=== PATIENT | female | born 1995 | race African-American/Black ===

== ENCOUNTER 2019-01-17 22:01 | Emergency (ER) | payer MEDICAID ==
[~2019-01-17] VITALS: Ht 167.6 cm; Wt 65.8 kg
[2019-01-17 22:08] VITALS: BP 143/78
--- NOTE | 2019-01-17 22:53 | NUR ---
PT STATED THAT SHE WAS HOMELESS. PT REC'D A WARM CARDIGAN, FOOD AND JUICE. PT REFUSED SENIOR LIVING, BUT REC'D A HOMELESS PACKET WITH SENIOR LIVING INFORMATION. PT ALSO REFUSED A TAP CARD. PT STATED THAT SHE HAD MEANS TO GET HOME.
== END 2019-01-17 22:59 | disposition home or self-care (01) ==
LOC: ER 22:01
DX: S80.861A Insect bite (nonvenomous), right lower leg, initial encounter (principal); Z90.89 Acquired absence of other organs; W57.XXXA Bitten or stung by nonvenomous insect and other nonvenomous arthropods, initial encounter; Y93.89 Activity, other specified; Y92.89 Other specified places as the place of occurrence of the external cause; Y99.8 Other external cause status

== ENCOUNTER 2019-01-23 22:29 | Emergency (ER) | payer MEDICAID ==
[~2019-01-23] VITALS: Ht 167.6 cm; Wt 65.8 kg
[2019-01-23 22:36] VITALS: BP 125/65
== END 2019-01-23 23:23 | disposition home or self-care (01) ==
LOC: ER 22:32
DX: B35.3 Tinea pedis (principal); Z90.89 Acquired absence of other organs; Z59.0 Homelessness

== ENCOUNTER 2019-07-24 22:01 | Emergency (ER) | payer MEDICAID ==
[~2019-07-24] VITALS: Ht 167.6 cm; Wt 82.6 kg
[2019-07-24 23:14] VITALS: BP 144/88
--- NOTE | 2019-07-24 23:48 | NUR ---
Patient given written and verbal discharge instructions. Patient verbalizes understanding of instructions. Patient is ambulatory with steady gait. Refuses offer of assisted placement. Patient given list of available shelters in surrounding area.
== END 2019-07-24 23:51 | disposition home or self-care (01) ==
LOC: ER 22:01
DX: M54.2 Cervicalgia (principal); M62.838 Other muscle spasm; Z90.89 Acquired absence of other organs; Z59.0 Homelessness

== ENCOUNTER 2019-09-22 18:53 | Emergency (ER) | payer BC, MEDICAID ==
[~2019-09-22] VITALS: Ht 167.6 cm; Wt 82.6 kg
--- NOTE | 2019-09-22 21:00 | NUR ---
CALLED PT IN [place], NO ANSWER.
[2019-09-22 21:05] VITALS: BP 143/99
--- NOTE | 2019-09-22 21:16 | NUR ---
CALLED PT IN [place], NO ANSWER
--- NOTE | 2019-09-22 21:34 | NUR ---
CALLED PT IN [place], NO ANSWER.
[2019-09-23] MEDS ORDERED: IBUPROFEN 600 MG TABLET PO ONE ×2 (02:43→03:00)
== END 2019-09-23 04:35 | disposition home or self-care (01) ==
LOC: ER 18:58
DX: B34.9 Viral infection, unspecified (principal); F17.200 Nicotine dependence, unspecified, uncomplicated; Z90.89 Acquired absence of other organs; Z59.0 Homelessness

== ENCOUNTER 2019-09-26 21:39 | Emergency (ER) | payer BC, MEDICAID ==
[~2019-09-26] VITALS: Ht 167.6 cm; Wt 82.6 kg
[2019-09-26 23:13] VITALS: BP 132/87
[2019-09-26] MEDS ORDERED: IBUPROFEN 400 MG TABLET ONE (23:26)
[2019-09-26] MEDS ORDERED: IBUPROFEN 400 MG TABLET PO ONE (23:30)
== END 2019-09-26 23:35 | disposition home or self-care (01) ==
LOC: ER 21:41
DX: B34.9 Viral infection, unspecified (principal); F10.10 Alcohol abuse, uncomplicated; F17.200 Nicotine dependence, unspecified, uncomplicated; Y90.9 Presence of alcohol in blood, level not specified; Z90.89 Acquired absence of other organs; Z59.0 Homelessness

== ENCOUNTER 2019-09-27 21:35 | Emergency (ER) | payer BC ==
[~2019-09-27] VITALS: Ht 167.6 cm; Wt 83.0 kg
--- NOTE | 2019-09-27 21:48 | NUR ---
CALLED TO TRIAGE NO ANSWER
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
--- NOTE | 2019-09-27 22:27 | NUR ---
AWAITING FOR MD WIGGINS
--- NOTE | 2019-09-27 22:46 | NUR ---
Patient discharged to home in stable condition. Written and verbal after care instructions given. Patient verbalizes understanding of instruction. PT ambulatory with a steady gait. PT signed homeless waiver.
[2019-09-27 22:47] VITALS: BP 128/78
== END 2019-09-27 22:47 | disposition home or self-care (01) ==
LOC: ER 21:35
DX: N89.8 Other specified noninflammatory disorders of vagina (principal); F10.10 Alcohol abuse, uncomplicated; F17.200 Nicotine dependence, unspecified, uncomplicated; Y90.9 Presence of alcohol in blood, level not specified; Z90.89 Acquired absence of other organs; Z59.0 Homelessness

== ENCOUNTER 2020-01-03 00:08 | Emergency (ER) | payer BC ==
[~2020-01-03] VITALS: Ht 167.6 cm; Wt 81.6 kg
[2020-01-03 00:33] VITALS: BP 141/90
--- NOTE | 2020-01-03 00:57 | NUR ---
URINE COLLECTED AND SENT TO LAB
== END 2020-01-03 01:57 | disposition home or self-care (01) ==
LOC: ER 00:08
DX: Z32.02 Encounter for pregnancy test, result negative (principal); Z59.0 Homelessness; J45.909 Unspecified asthma, uncomplicated; Z90.89 Acquired absence of other organs
CPT/HCPCS: 84703-TC

== ENCOUNTER 2020-01-21 03:02 | Emergency (ER) | payer BC ==
[~2020-01-21] VITALS: Ht 167.6 cm; Wt 68.0 kg
[2020-01-21 03:02] VITALS: BP 130/75
[2020-01-21] MEDS ORDERED: IBUPROFEN 400 MG TABLET ONE (04:04)
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
[2020-01-21] MEDS ORDERED: IBUPROFEN 400 MG TABLET PO ONE (04:30)
== END 2020-01-21 05:27 | disposition home or self-care (01) ==
LOC: ER 03:05
DX: S09.8XXA Other specified injuries of head, initial encounter (principal); F17.200 Nicotine dependence, unspecified, uncomplicated; J45.909 Unspecified asthma, uncomplicated; Z90.89 Acquired absence of other organs; Z59.0 Homelessness; Y08.89XA Assault by other specified means, initial encounter; Y93.89 Activity, other specified; Y92.89 Other specified places as the place of occurrence of the external cause; Y99.8 Other external cause status
CPT/HCPCS: 70450-TC

== ENCOUNTER 2020-01-22 03:08 | Emergency (ER) | payer BC ==
[~2020-01-22] VITALS: Ht 167.6 cm; Wt 68.0 kg
[2020-01-22 03:09] VITALS: BP 124/62
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
[2020-01-22] MEDS ORDERED: FAMOTIDINE (20 MG) 20 MG TABLET ONE (04:56)
[2020-01-22] MEDS ORDERED: MAG HYDROX/AL HYDROX/SIMETH 30 ML UDC ONE (04:56)
[2020-01-22] MEDS ORDERED: IBUPROFEN 600 MG TABLET PO ONE ×2 (04:56→05:00)
[2020-01-22] MEDS ORDERED: FAMOTIDINE (20 MG) 20 MG TABLET PO ONE (05:00)
[2020-01-22] MEDS ORDERED: MAG HYDROX/AL HYDROX/SIMETH 30 ML UDC PO ONE (05:00)
== END 2020-01-22 05:43 | disposition home or self-care (01) ==
LOC: ER 03:12
DX: K30 Functional dyspepsia (principal); R51 Headache; J45.909 Unspecified asthma, uncomplicated; F17.200 Nicotine dependence, unspecified, uncomplicated; Z90.89 Acquired absence of other organs; Z59.0 Homelessness

== ENCOUNTER 2020-03-08 21:24 | Emergency (ER) | payer BC ==
[~2020-03-08] VITALS: Ht 167.6 cm; Wt 63.5 kg
[2020-03-08 21:40] VITALS: BP 159/98
[2020-03-08] MEDS ORDERED: LIDOCAINE VISCOUS 2% UD 15 ML UDC MM ONE (22:30)
[2020-03-08] MEDS ORDERED: ONDANSETRON 4 MG TAB.RAPDIS SL ONE (22:30)
[2020-03-08] MEDS ORDERED: MAG HYDROX/AL HYDROX/SIMETH 30 ML UDC PO ONE (22:30)
[2020-03-08 22:33] LABS: APPEARANCE,URINE Turbid (CLEAR); BILIRUBIN,URINE LARGE (NEGATIVE); BLOOD, URINE Large Ery/uL (NEGATIVE); COLOR,URINE Dark (YELLOW); KETONES,URINE Negative (NEGATIVE); LEUKOCYTE ESTERASE ,URINE Negative (NEGATIVE); NITRITE, URINE Negative (NEGATIVE); PH,URINE 5.5 (5.0-8.0); PROTEIN,URINE 30 mg/dl (NEGATIVE); UGLUCOSE Negative (NEGATIVE); UROBILINOGEN,URINE 0.2 EU/dL (0.2)
[2020-03-08 22:37] LABS: BASOPHILS % (AUTO) 0.4 % (0.0-2.0); EOSINOPHILS % (AUTO) 4.6 % (0.0-6.0); HEMATOCRIT 42 % (33-45); HEMOGLOBIN 13.4 g/dL (11.5-14.8); LYMPHOCYTES # (AUTO) 1.1 /CMM (0.8-4.8); MEAN CORPUSCULAR HGB CONC 32 g/dl (31.0-36.0); MEAN CORPUSCULAR VOLUME 80 fL (82-100); MONOCYTES # (AUTO) 0.4 /CMM (0.1-1.30); MONOCYTES % (AUTO) 7.2 % (2.0-12.0); NEUTROPHILS # (AUTO) 3.4 /CMM (1.8-8.9); NEUTROPHILS % (AUTO) 65.8 % (43.0-81.0); PLATELET COUNT (AUTO) 167 /CMM (150-450); RED BLOOD CELL COUNT(AUTO) 5.21 MIL/uL (4.0-5.2); WHITE BLOOD COUNT (AUTO) 5.1 K/uL (4.3-11.0)
[2020-03-08] MEDS ORDERED: LIDOCAINE VISCOUS 2% UD 15 ML UDC ONE (22:40)
[2020-03-08] MEDS ORDERED: MAG HYDROX/AL HYDROX/SIMETH 30 ML UDC ONE (22:40)
[2020-03-08] MEDS ORDERED: ONDANSETRON 4 MG TAB.RAPDIS ONE (22:40)
[2020-03-08 22:42] LABS: CALCIUM, SERUM 8.2 mg/dL (8.5-10.1); CREATININE 0.8 mg/dL (0.6-1.3); POTASSIUM 3.7 mmol/L (3.5-5.1)
[2020-03-08 22:48] LABS: ALBUMIN 3.6 g/dL (3.4-5.0); BILIRUBIN,TOTAL 0.3 mg/dL (0.2-1.0); TOTAL PROTEIN, SERUM 6.5 g/dL (6.4-8.2)
--- NOTE | 2020-03-08 23:40 | NUR ---
Patient given written and verbal discharge instructions. Patient verbalizes understanding of instructions. Patient is ambulatory with steady gait. Refuses offer of halfway placement. Patient given list of available shelters in surrounding area.
[2020-03-08 23:43] LABS: BACTERIA,URINE Few /HPF (None Seen); RBC,URINE TOO NUMEROUS TO COUN /HPF (0-2); SQUAMOUS EPITHELIAL CELL,UR Few /HPF (None Seen); URINE AMORPHOUS URATE Many /HPF (None Seen)
== END 2020-03-08 23:42 | disposition home or self-care (01) ==
LOC: ER 21:24
DX: R10.84 Generalized abdominal pain (principal); R11.2 Nausea with vomiting, unspecified; J45.909 Unspecified asthma, uncomplicated; Z90.89 Acquired absence of other organs; Z59.0 Homelessness
CPT/HCPCS: 36415; 74176; 80053; 81001; 83690; 84703; 85025; 99284; Q0162; 81000-TC

== ENCOUNTER 2020-04-01 08:28 | Emergency (ER) | payer BC ==
[~2020-04-01] VITALS: Ht 167.6 cm; Wt 72.6 kg
[2020-04-01 08:32] VITALS: BP 147/97
[2020-04-01] MEDS ORDERED: ACETAMINOPHEN ES 500 MG TABLET ONE (09:23)
--- NOTE | 2020-04-01 09:27 | NUR ---
Patient given written and verbal discharge instructions. Patient verbalizes understanding of instructions. Patient is ambulatory with steady gait. Refuses offer of jail placement. Patient given list of available shelters in surrounding area. PAtient in proper clothing upon discharge, name band removed. all belongings with the patient
[2020-04-01] MEDS ORDERED: ACETAMINOPHEN ES 500 MG TABLET PO ONE (09:30)
== END 2020-04-01 09:27 | disposition home or self-care (01) ==
LOC: ER 08:31
DX: S00.512A Abrasion of oral cavity, initial encounter (principal); J45.909 Unspecified asthma, uncomplicated; Z90.89 Acquired absence of other organs; Z59.0 Homelessness; X58.XXXA Exposure to other specified factors, initial encounter; Y93.89 Activity, other specified; Y92.89 Other specified places as the place of occurrence of the external cause; Y99.8 Other external cause status

== ENCOUNTER 2020-07-16 21:21 | Emergency (ER) | payer BC ==
[~2020-07-16] VITALS: Ht 167.6 cm; Wt 63.5 kg
[2020-07-16 22:52] LABS: BASOPHILS % (AUTO) 0.2 % (0.0-2.0); EOSINOPHILS % (AUTO) 4.6 % (0.0-6.0); HEMATOCRIT 42 % (33-45); HEMOGLOBIN 13.6 g/dL (11.5-14.8); LYMPHOCYTES # (AUTO) 2.9 /CMM (0.8-4.8); LYMPHOCYTES % (AUTO) 46.4 % (20.0-44.0); MEAN CORPUSCULAR HGB CONC 32 g/dl (31.0-36.0); MEAN CORPUSCULAR VOLUME 79 fL (82-100); MONOCYTES # (AUTO) 0.5 /CMM (0.1-1.30); MONOCYTES % (AUTO) 7.9 % (2.0-12.0); NEUTROPHILS # (AUTO) 2.6 /CMM (1.8-8.9); NEUTROPHILS % (AUTO) 40.9 % (43.0-81.0); PLATELET COUNT (AUTO) 173 /CMM (150-450); WHITE BLOOD COUNT (AUTO) 6.3 K/uL (4.3-11.0)
--- NOTE | 2020-07-16 22:56 | NUR ---
BIBS FROM HOME TO ER BED 6. AAOX4. NOT IN RESP DISTRESS, BREATHING EVEN AND UNLABORED. AMBULATORY. CAME IN FOR COUGH, FEVER AND DIARRHEA X 1 DAY. ORAL TEMP NOTED @ 97.5. MD WAS AT THE BEDSIDE FOR EVAL. ORDERS RECEIVED. COVID SWAB DONE, URINE COLLECTED NAD SENT TO LAB
[2020-07-16 23:04] LABS: CALCIUM, SERUM 8.6 mg/dL (8.5-10.1); CREATININE 0.9 mg/dL (0.6-1.3); POTASSIUM 3.5 mmol/L (3.5-5.1)
[2020-07-16 23:10] LABS: ALBUMIN 3.7 g/dL (3.4-5.0); BILIRUBIN,TOTAL 0.1 mg/dL (0.2-1.0)
--- NOTE | 2020-07-16 23:21 | NUR ---
REC'D NEG COVID RESULTS. AWARE
--- NOTE | 2020-07-16 23:52 | NUR ---
Patient discharged to home in stable condition. Written and verbal after care instructions given. Patient verbalizes understanding of instruction.
[2020-07-16 23:54] VITALS: BP 124/62
== END 2020-07-16 23:55 | disposition home or self-care (01) ==
LOC: ER 21:23
DX: R05 Cough (principal); Z20.828 Contact with and (suspected) exposure to other viral communicable diseases; J45.909 Unspecified asthma, uncomplicated; Z59.0 Homelessness
CPT/HCPCS: 36415; 71045; 80053; 84703; 85025; 87426; 99284; C9803